=== PATIENT | male | born 1955 | race Caucasian/White ===

== ENCOUNTER 2017-03-04 06:54 | Day surgery (SDC) | payer OTHER ==
[2017-03-04] MEDS ORDERED: ALBU0.63 NEB (07:38)
[2017-03-04] MEDS ORDERED: ACET500C PO (07:38)
[2017-03-04] MEDS ORDERED: METF500T PO (07:45)
[2017-03-04] MEDS ORDERED: GLIP5TAB8 PO (07:45)
[2017-03-04] MEDS ORDERED: LEVO50TA4 PO (07:45)
[2017-03-04] MEDS ORDERED: XARE20TA PO (07:45)
[2017-03-04] MEDS ORDERED: ATOR40TA16 PO (07:45)
[2017-03-04] MEDS ORDERED: HYDR50TA15 PO (07:45)
[2017-03-04] MEDS ORDERED: CANA300T PO (07:45)
[2017-03-04] MEDS ORDERED: HYDR12.57 PO (07:45)
[2017-03-04] MEDS ORDERED: LUMI0.01 EACH EYE (07:45)
[2017-03-04] MEDS ORDERED: CITA20TA4 PO (07:45)
[2017-03-04] MEDS ORDERED: LISI40TA PO (07:45)
[2017-03-04] MEDS ORDERED: AMLO5TAB2 PO (07:45)
[2017-03-04] MEDS ORDERED: CYCL1TAB29 PO (07:45)
[2017-03-04] MEDS ORDERED: POVIDONE IODINE 5% (ANTISEPSIS KIT) 4 APPLICATIONS EACH NARE SCH (08:00)
[2017-03-04] MEDS ORDERED: ceFAZolin 2 GM PREMIX 50 ML IV SCH (08:00)
[2017-03-04] MEDS ORDERED: VANCOMYCIN 1000 MG/NS 250 ML IV SCH ×2 (08:00)
[2017-03-04] MEDS ORDERED: CHLORHEXIDINE GLUCONATE 2 % 1 PACK (2 CLOTHS) TOPICAL SCH (08:00)
[2017-03-04] MEDS ORDERED: MUPIROCIN 2% OINT 1 APPLIC/GM SYR NASAL SCH (08:00)
[2017-03-04] MEDS ORDERED: MIDAZOLAM HCL 2 MG/2 ML VIAL ONE (08:57)
--- NOTE | 2017-03-04 09:39 | MA ---
cc: JAGDISH JI MD DATE 03/04/[address] Jagdish Ji PROCEDURE PERFORMED 1. 15 minutes moderate IV sedation. 2. Loop recorder insertion. DESCRIPTION OF PROCEDURE The patient was brought to the [facility] in the postabsorptive state after informed consent was obtained. 2 mg Versed and 25 mcg of fentanyl was used for moderate IV sedation. Next, a [employer] LINQ loop recorder was inserted subcutaneously to left chest. The patient tolerated the procedure well without any apparent complications. The serial number was are [id number]. The initial R-wave was 0.44 mV. Tachybrady pause and atrial fibrillation detection was enabled. MD JITENDRA Choudhury/LAURENCE /9:18 AM /9:29 AM
== END 2017-03-04 09:40 | disposition home or self-care (01) ==
LOC: HDIC 06:54 → HDOC 06:54
PROVIDERS: ATTEND Nuclear Medicine Nuclear Cardiology
DX: I48.0 Paroxysmal atrial fibrillation (principal); I34.0 Nonrheumatic mitral (valve) insufficiency; I10 Essential (primary) hypertension; I07.1 Rheumatic tricuspid insufficiency; G47.30 Sleep apnea, unspecified; E11.9 Type 2 diabetes mellitus without complications; J44.9 Chronic obstructive pulmonary disease, unspecified; M54.9 Dorsalgia, unspecified; Z79.01 Long term (current) use of anticoagulants; Z87.891 Personal history of nicotine dependence; E66.01 Morbid (severe) obesity due to excess calories
CPT/HCPCS: 33282; C1764; J0690; J2250; J3010

== ENCOUNTER 2017-11-17 08:07 | Inpatient (IN) | payer OTHER, MEDICARE ==
[2017-11-17] VITALS (16 sets, daily range): BP systolic 78–119; BP diastolic 46–86; PULSE 72–133; RESP 12–23; TEMP 96.5–100; O2SAT 94–99
[~2017-11-17 08:07] MED LIST: ACET500C PO; ALBU0.63 NEB; AMLO5TAB2 PO; ATOR40TA16 PO; CANA300T PO; CITA20TA4 PO; CYCL10TA PO; GLIP5TAB8 PO; HYDR12.57 PO; HYDR50TA15 PO; LEVO50TA4 PO; LISI40TA PO; LUMI0.01 EACH EYE; METF500T PO; XARE20TA PO
[2017-11-17] MEDS ORDERED: METO100T PO (08:59)
[2017-11-17] MEDS ORDERED: HYDR-3799 PO (08:59)
[2017-11-17] MEDS ORDERED: CART120C PO (08:59)
[2017-11-17] MEDS ORDERED: SODIUM CHLORIDE 0.9% FLUSH 10 ML FLUSH IVF PRN (09:30)
[2017-11-17] MEDS ORDERED: ONDANSETRON HCL 4 MG/2 ML VIAL IVP ONE (09:30)
[2017-11-17] MEDS ORDERED: SODIUM CHLOR 0.9% 1000 ML INJ 1,000 ML IV ONE ×2 (09:30→10:45)
[2017-11-17] MEDS ORDERED: PANTOPRAZOLE SODIUM 40 MG VIAL IVP ONE (09:30)
--- NOTE | 2017-11-17 09:36 | PD ---
HPI Chief Complaint: GI Complaint Time Seen by Provider: 09:16 Travel History International Travel<30 days: No Contact w/Intl Traveler<30days: No Traveled to known affect area: No History of Present Illness HPI This patient complains of feeling dizzy and lightheaded. He feels like he is given a pass out when he stands up. His heart is beating rapidly. He is also complaining of black stool for 3 days. He has history of upper GI bleed. He has no alcohol abuse. He does takes Xarelto for A. fib. He has a loop recorder implanted. He is not having any chest pain or fever. No abdominal pain. Has not had syncope. Symptoms are severe. No alleviating factors. Symptoms exacerbated by blood thinner use and underlying A. fib. PFSH Past Medical History Atrial Fibrillation: Yes Anxiety: Yes Depression: Yes Cardiovascular Problems: Yes High Cholesterol: Yes Diabetes: Yes Patient Takes Glucophage: Yes Diminished Hearing: No Gastrointestinal Disorders: Yes GERD: Yes Hypertension: Yes Medical other: Yes Musculoskeletal: Yes Psychiatric: Yes Respiratory: Yes (sleep apnea) Tetanus Vaccination: > 5 Years Influenza Vaccination: Yes Past Surgical History Abdominal Surgery: Yes (hernia repair) Eye Surgery: Yes (glaucoma) Social History Alcohol Use: No Tobacco Use: No (quit 25 years ago) Substance Use: No Allergies-Medications (Allergen,Severity, Reaction): Coded Allergies: aspirin (Verified Adverse Reaction, Severe, STOMACH BLEED, 11/17/17) Reported Meds & Prescriptions Reported Meds & Active Scripts Active Reported Metoprolol Tartrate 100 Mg Tab 100 Mg PO DAILY Cartia Xt (Diltiazem ER 24 HR) 120 Mg Caper 240 Mg PO DAILY Hydralazine HCl 25 Mg Tablet 50 Mg PO TID Xarelto (Rivaroxaban) 20 Mg Tab 20 Mg PO DAILY Metformin (Metformin HCl) 500 Mg Tab 500 Mg PO BIDPC With meals Lumigan Opth Drops (Bimatoprost) 0.01% Soln 1 Drop EACH EYE HS Lisinopril 40 Mg Tab 40 Mg PO DAILY Levothyroxine (Levothyroxine Sodium) 50 Mcg Tab 50 Mcg PO DAILY Invokana (Canagliflozin) 300 Mg Tab 300 Mg PO DAILY Take before 1st meal of day. Hydrochlorothiazide 12.5 Mg Cap 12.5 Mg PO DAILY Glipizide 5 Mg Tab 5 Mg PO DAILY Take 30 minutes before a meal Citalopram (Citalopram Hydrobromide) 20 Mg Tab 20 Mg PO DAILY Atorvastatin (Atorvastatin Calcium) 40 Mg Tab 40 Mg PO HS Review of Systems General / Constitutional: No: Fever Eyes: No: Visual changes HENT: Positive: Lightheadedness, No: Headaches Cardiovascular: Positive: Palpitations, Irregular Rhythm, Tachycardia, No: Chest Pain or Discomfort Respiratory: No: Shortness of Breath Gastrointestinal: No: Abdominal Pain Genitourinary: No: Dysuria Musculoskeletal: Positive: Weakness, No: Pain Skin: No Rash Neurologic: Positive: Weakness, Dizziness Psychiatric: No: Depression Endocrine: No: Polydipsia Hematologic/Lymphatic: No: Easy Bruising Physical Exam Narrative GENERAL: Well-nourished, well-developed patient with tachycardia and melena and lightheadedness . SKIN: Focused skin assessment reveals no rash and nodules. Skin is Warm and dry. HEAD: Atraumatic. Normocephalic. EYES: Pupils equal and round. No scleral icterus. No injection or drainage. ENT: No nasal bleeding or discharge. Mucous membranes pink and moist. NECK: Trachea midline. No JVD. CARDIOVASCULAR: Very rapid heart rate of 150. No murmur appreciated. Due to the excessive heart rate it's difficult to tell by exam if this is regular or not RESPIRATORY: No accessory muscle use. Clear to auscultation. Breath sounds equal bilaterally. GASTROINTESTINAL: Abdomen soft, non-tender, nondistended. Hepatic and splenic margins not palpable. MUSCULOSKELETAL: No obvious deformities. No clubbing. No cyanosis. No edema. NEUROLOGICAL: Awake and alert. No obvious cranial nerve deficits. Motor grossly within normal limits. Normal speech. PSYCHIATRIC: Appropriate mood and affect; insight and judgment normal. Rectal: Normal tone, no mass. Stool is black Data Data Last Documented VS Vital Signs Date Time Temp Pulse Resp B/P (MAP) Pulse Ox O2 Delivery O2 Flow Rate FiO2 11/17/17 10:36 123 18 93/56 (68) 96 11/17/17 08:36 Room Air 11/17/17 08:10 96.5 Orders Orders Basic Metabolic Panel (Bmp) (11/17/17 09:25) Complete Blood Count With Diff (11/17/17 09:25) Type And Screen (11/17/17 09:25) Ecg Monitoring (11/17/17 09:25) Iv Access Insert/Monitor (11/17/17 09:25) Oximetry (11/17/17 09:25) Ondansetron Inj (Zofran Inj) (11/17/17 09:30) Pantoprazole Inj (Protonix Inj) (11/17/17 09:30) Sodium Chloride 0.9% Flush (Ns Flush) (11/17/17 09:30) Sodium Chlor 0.9% 1000 Ml Inj (Ns 1000 M (11/17/17 09:30) Diltiazem Inj (Cardizem Inj) (11/17/17 09:45) Diltiazem Inj (Cardizem Inj) (11/17/17 10:45) Sodium Chloride 0.9% Flush (Ns Flush) (11/17/17 10:45) Sodium Chlor 0.9% 1000 Ml Inj (Ns 1000 M (11/17/17 10:45) Calcium Gluconate Inj (Calcium Gluconate (11/17/17 10:45) Insulin Human Regular Inj (Novolin R Inj (11/17/17 10:45) Dextrose 50% In Irena (Vial) Inj (D50w (Vi (11/17/17 10:45) Sodium Bicarbonate 8.4% Inj (Sodium Bica (11/17/17 10:45) Sodium Polysty Sulfate Liq (Kayexalate L (11/17/17 10:45) Admit Order (Ed Use Only) (11/17/17 10:40) Labs Laboratory Tests Test 11/17/17 09:30 White Blood Count 13.5 TH/MM3 Red Blood Count 3.93 MIL/MM3 Hemoglobin 11.3 GM/DL Hematocrit 33.8 % Mean Corpuscular Volume 85.9 FL Mean Corpuscular Hemoglobin 28.7 PG Mean Corpuscular Hemoglobin Concent 33.4 % Red Cell Distribution Width 14.6 % Platelet Count 241 TH/MM3 Mean Platelet Volume 9.0 FL Neutrophils (%) (Auto) 84.9 % Lymphocytes (%) (Auto) 8.4 % Monocytes (%) (Auto) 6.2 % Eosinophils (%) (Auto) 0.1 % Basophils (%) (Auto) 0.4 % Neutrophils # (Auto) 11.5 TH/MM3 Lymphocytes # (Auto) 1.1 TH/MM3 Monocytes # (Auto) 0.8 TH/MM3 Eosinophils # (Auto) 0.0 TH/MM3 Basophils # (Auto) 0.1 TH/MM3 CBC Comment DIFF FINAL Differential Comment Blood Urea Nitrogen 63 MG/DL Creatinine 1.65 MG/DL Random Glucose 284 MG/DL Calcium Level 8.9 MG/DL Sodium Level 140 MEQ/L Potassium Level 6.3 MEQ/L Chloride Level 104 MEQ/L Carbon Dioxide Level 25.1 MEQ/L Anion Gap 11 MEQ/L Estimat Glomerular Filtration Rate 42 ML/MIN MDM Medical Decision Making Medical Screen Exam Complete: Yes Emergency Medical Condition: Yes Medical Record Reviewed: Yes Differential Diagnosis GI bleed, symptomatic anemia, hemorrhagic shock, A. fib with RVR Narrative Course I have reviewed the patient's electronic medical record. Reviewed his February 2017 loop recorder implantation note This patient arrives critically ill. He has GI bleed in combination with A. fib with RVR and a heart rate of 150 and taking a nonreversible blood thinner 2 IVs placed I gave him 1 L normal saline IV bolus I gave him 20 mg IV Cardizem He will need close watching for development of hypotension Typing and screening done CBC shows hemoglobin of 11.3 Metabolic profile shows hyperkalemia of 6.3 with azotemia and hyperglycemia LFTs are noted There is some decent response to Cardizem initially but that is were often a heart rate is now up into the 120s Blood pressure dropped to 93 systolic I'm starting Cardizem drip and giving him a second liter of normal saline IV bolus I've ordered a multitude of medications for hyperkalemia including sodium bicarbonate and D50 and insulin and Kayexalate and 1 g IV calcium gluconate 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 This patient will require intensive care support given he is critically ill with GI bleed on anticoagulation with A. fib with RVR now hypotension Critical Care Narrative Aggregate critical care time was 80 minutes. Time to perform other separately billable procedures was not included in the critical care time. My time did not include minutes spent treating any other patients simultaneously or on activities that did not directly contribute to the patient's treatment. The services I provided to this patient were to treat and/or prevent clinically significant deterioration that could result in: Hemorrhagic shock, cardiopulmonary arrest I provided critical care services requiring my management, as noted below: Chart data review, documentation time, medication orders and management, vital sign assessments/reviewing monitor data, ordering and reviewing lab tests, ordering and interpreting/reviewing x-rays and diagnostic studies, care of the patient and discussion of the patient with the admitting physicians. Diagnosis Primary Impression: GI bleed Qualified Codes: K92.2 - Gastrointestinal hemorrhage, unspecified Additional Impressions: Anticoagulated Atrial fibrillation with RVR Acute hyperkalemia Admitting Information Admitting Physician Requests: Admit Jeramie Gillespie MD Nov 17, 2017 09:36
[2017-11-17 09:43] LABS: AUTOMATED NEUTROPHIL # 11.5 TH/MM3 (1.8-7.7); BASOPHIL # 0.1 TH/MM3 (0-0.2); BASOPHIL % 0.4 % (0.0-2.0); EOSINOPHIL % 0.1 % (0.0-4.0); HEMATOCRIT 33.8 % (39.0-51.0); HEMOGLOBIN 11.3 GM/DL (13.0-17.0); LYMPH % 8.4 % (9.0-44.0); LYMPHOCYTE # 1.1 TH/MM3 (1.0-4.8); MEAN CELL VOLUME 85.9 FL (80.0-100.0); MEAN CORPUSCULAR HEMOGLOBIN 28.7 PG (27.0-34.0); MEAN CORPUSCULAR HGB CONC 33.4 % (32.0-36.0); MONO % 6.2 % (0.0-8.0); MONOCYTE # 0.8 TH/MM3 (0-0.9); NEUT % 84.9 % (16.0-70.0); PLATELET COUNT 241 TH/MM3 (150-450); RED BLOOD COUNT 3.93 MIL/MM3 (4.50-5.90); RED CELL DISTRIBUTION WIDTH 14.6 % (11.6-17.2); WHITE BLOOD COUNT 13.5 TH/MM3 (4.0-11.0)
[2017-11-17] MEDS ORDERED: DILTIAZEM HCL 25 MG/5 ML VIAL IV ONE (09:45)
[2017-11-17 10:10] LABS: BICARBONATE 25.1 MEQ/L (21.0-32.0); CALCIUM 8.9 MG/DL (8.5-10.1); CREATININE 1.65 MG/DL (0.60-1.30)
[2017-11-17] MEDS ORDERED: SODIUM CHLORIDE 0.9% FLUSH 10 ML FLUSH IV FLUSH PRN (10:45)
[2017-11-17] MEDS ORDERED: INSULIN HUMAN REGULAR 1,000 UNITS/10 ML VIAL IV PUSH ONE (10:45)
[2017-11-17] MEDS ORDERED: SODIUM BICARBONATE 8.4% SOLN 50 MEQ/50 ML VIAL SLOW IVP ONE (10:45)
[2017-11-17] MEDS ORDERED: DEXTROSE 50% IN WATER 50 ML VIAL(D50) IV PUSH ONE (10:45)
[2017-11-17] MEDS ORDERED: CALCIUM GLUCONATE 10% 1 GM/10 ML VIAL SLOW IVP ONE (10:45)
[2017-11-17] MEDS ORDERED: SODIUM POLYSTYRENE SULFONATE SUSP 15 GM/60 ML CUP PO ONE (10:45)
[2017-11-17] MEDS ORDERED: ACETAMINOPHEN 325 MG TAB PO PRN (11:00)
[2017-11-17] MEDS ORDERED: MISCELLANEOUS NURSING INFORMATION XX SCH (11:00)
[2017-11-17] MEDS ORDERED: CHLORHEXIDINE GLUCONATE 2 % 1 PACK (2 CLOTHS) TOP PRN (11:00)
[2017-11-17] MEDS ORDERED: GLUCAGON 1 MG/ML VIAL OTHER PRN (11:15)
[2017-11-17] MEDS ORDERED: DEXTROSE 50% IN WATER 50 ML VIAL(D50) IV PUSH PRN (11:15)
[2017-11-17] MEDS ORDERED: PANTOPRAZOLE SODIUM 40 MG VIAL IV PUSH ONE (11:15)
[2017-11-17] MEDS: INSULIN ASPART SUPPLEMENTAL SCALE SQ SCH ×3 (11:15→23:15)
--- NOTE | 2017-11-17 12:10 | HHI.HP ---
HPI Service Critical Care Medicine Primary Care Physician Unknown Admission Diagnosis gi bleed,anticoagulated,afib with rvr Diagnosis: (1) Hypovolemic shock Diagnosis: Principal (2) GI bleed Diagnosis: Principal (3) Coagulopathy Diagnosis: Principal (4) Acute hyperkalemia Diagnosis: Principal (5) Atrial fibrillation with RVR Diagnosis: Secondary Chief Complaint: Weakness. Travel History International Travel<30 Days: No Contact w/Intl Traveler <30 Da: No Traveled to Known Affected Are: No History of Present Illness 61 y/o man arrives to ED in hypovolemic shock and probable actively bleeding UGI ulcer/gastritis. Care is complicated by permanent atrial fibrillation and Xarelto use. Presently hyperkalemic and RVR, on cardizem gtt. Past history of gastric bleed. Past Family Social History Allergies: Coded Allergies: aspirin (Verified Adverse Reaction, Severe, STOMACH BLEED, 11/17/17) Past Medical History Past Medical History Atrial Fibrillation: Yes Anxiety: Yes Depression: Yes Cardiovascular Problems: Yes High Cholesterol: Yes Diabetes: Yes Patient Takes Glucophage: Yes Diminished Hearing: No Gastrointestinal Disorders: Yes GERD: Yes Hypertension: Yes Medical other: Yes Musculoskeletal: Yes Psychiatric: Yes Respiratory: Yes (sleep apnea) Tetanus Vaccination: > 5 Years Influenza Vaccination: Yes Past Surgical History Abdominal Surgery: Yes (hernia repair) Eye Surgery: Yes (glaucoma) Social History Alcohol Use: No Tobacco Use: No (quit 25 years ago) Substance Use: No Allergies-Medications Allergies-Medications (Allergen,Severity, Reaction): Coded Allergies: aspirin (Verified Adverse Reaction, Severe, STOMACH BLEED, 11/17/17) Reported Meds & Prescriptions Reported Meds & Active Scripts Active Reported Metoprolol Tartrate 100 Mg Tab 100 Mg PO DAILY Cartia Xt (Diltiazem ER 24 HR) 120 Mg Caper 240 Mg PO DAILY Hydralazine HCl 25 Mg Tablet 50 Mg PO TID Xarelto (Rivaroxaban) 20 Mg Tab 20 Mg PO DAILY Metformin (Metformin HCl) 500 Mg Tab 500 Mg PO BIDPC With meals Lumigan Opth Drops (Bimatoprost) 0.01% Soln 1 Drop EACH EYE HS Lisinopril 40 Mg Tab 40 Mg PO DAILY Levothyroxine (Levothyroxine Sodium) 50 Mcg Tab 50 Mcg PO DAILY Invokana (Canagliflozin) 300 Mg Tab 300 Mg PO DAILY Take before 1st meal of day. Hydrochlorothiazide 12.5 Mg Cap 12.5 Mg PO DAILY Glipizide 5 Mg Tab 5 Mg PO DAILY Take 30 minutes before a meal Citalopram (Citalopram Hydrobromide) 20 Mg Tab 20 Mg PO DAILY Atorvastatin (Atorvastatin Calcium) 40 Mg Tab 40 Mg PO HS Physical Exam Vital Signs Vital Signs Date Time Temp Pulse Resp B/P (MAP) Pulse Ox O2 Delivery O2 Flow Rate FiO2 11/17/17 11:30 133 20 100/55 (70) 96 11/17/17 10:36 123 18 93/56 (68) 96 11/17/17 09:49 72 20 118/68 (85) 98 11/17/17 08:38 16 11/17/17 08:36 123 20 115/86 (96) 98 Room Air 11/17/17 08:10 96.5 106 18 99 Laboratory Laboratory Tests Test 11/17/17 09:30 White Blood Count 13.5 Red Blood Count 3.93 Hemoglobin 11.3 Hematocrit 33.8 Mean Corpuscular Volume 85.9 Mean Corpuscular Hemoglobin 28.7 Mean Corpuscular Hemoglobin Concent 33.4 Red Cell Distribution Width 14.6 Platelet Count 241 Mean Platelet Volume 9.0 Neutrophils (%) (Auto) 84.9 Lymphocytes (%) (Auto) 8.4 Monocytes (%) (Auto) 6.2 Eosinophils (%) (Auto) 0.1 Basophils (%) (Auto) 0.4 Neutrophils # (Auto) 11.5 Lymphocytes # (Auto) 1.1 Monocytes # (Auto) 0.8 Eosinophils # (Auto) 0.0 Basophils # (Auto) 0.1 CBC Comment DIFF FINAL Differential Comment Blood Urea Nitrogen 63 Creatinine 1.65 Random Glucose 284 Calcium Level 8.9 Sodium Level 140 Potassium Level 6.3 Chloride Level 104 Carbon Dioxide Level 25.1 Anion Gap 11 Estimat Glomerular Filtration Rate 42 Result Diagram: 11/17/1792911/17/17929 Caprini VTE Risk Assessment Caprini VTE Risk Assessment: Mod/High Risk (score >= 2) Caprini Risk Assessment Model Point Value = 1 Point Value = 2 Point Value = 3 Point Value = 5 Age 41-60 Minor surgery BMI > 25 kg/m2 Swollen legs Varicose veins or History of unexplained or recurrent spontaneous Oral contraceptives or hormone replacement Sepsis (< 1 month) Serious lung disease, including pneumonia (< 1 month) Abnormal pulmonary function Acute myocardial infarction Congestive heart failure (< 1 month) History of inflammatory bowel disease Medical patient at bed rest Age 61-74 Arthroscopic surgery Major open surgery (> 45 min) Laparoscopic surgery (> 45 min) Malignancy Confined to bed (> 72 hours) Immobilizing plaster cast Central venous access Age >= 75 History of VTE Family history of VTE Factor V Leiden Prothrombin [id number] Lupus anticoagulant Anticardiolipin antibodies Elevated serum homocysteine Heparin-induced thrombocytopenia Other congenital or acquired thrombophilia Stroke (< 1 month) Elective arthroplasty Hip, pelvis, or leg fracture Acute spinal cord injury (< 1 month) Prophylaxis Regimen Total Risk Factor Score Risk Level Prophylaxis Regimen 0-1 Low Early ambulation 2 Moderate Order ONE of the following: *Sequential Compression Device (SCD) *Heparin 5000 units SQ BID 3-4 Higher Order ONE of the following medications: *Heparin 5000 units SQ TID *Enoxaparin/Lovenox 40 mg SQ daily (WT < 150 kg, CrCl > 30 mL/min) *Enoxaparin/Lovenox 30 mg SQ daily (WT < 150 kg, CrCl > 10-29 mL/min) *Enoxaparin/Lovenox 30 mg SQ BID (WT < 150 kg, CrCl > 30 mL/min) AND/OR *Sequential Compression Device (SCD) 5 or more Highest Order ONE of the following medications: *Heparin 5000 units SQ TID (Preferred with Epidurals) *Enoxaparin/Lovenox 40 mg SQ daily (WT < 150 kg, CrCl > 30 mL/min) *Enoxaparin/Lovenox 30 mg SQ daily (WT < 150 kg, CrCl > 10-29 mL/min) *Enoxaparin/Lovenox 30 mg SQ BID (WT < 150 kg, CrCl > 30 mL/min) AND *Sequential Compression Device (SCD) Assessment and Plan Assessment and Plan Assessment: 1. Hypovolemic shock. 2. UGI bleed. 3. Coagulopathy - Xarelto. 4. Permanent atrial fibrillation. 5. Hyperkalemia. 6. DN, Type 2, poorly controlled. Plan: GI Bleed - Kcentra - Endoscopy after reversal. Hyperkalemia - Reversal meds given in ED. - Follow K. Coagulaopthy - Hold xarelto A-fib - Cardizem gtt. Overall impression: Critically ill with shock from blood loss and coagulopathy. Unstable. Critical Care 45 mins aside from procedures Problem Qualifiers (1) GI bleed: Qualified Codes: K92.2 - Gastrointestinal hemorrhage, unspecified Tacho Manley MD Nov 17, 2017 12:10
[2017-11-17] MEDS ORDERED: PROTHROMBIN COMPLEX CONC INJ 5,000 UNITS in SYRINGE/BAG 1 EA IV ONE (13:00)
[2017-11-17 13:16] LABS: HEMATOCRIT 27.2 % (39.0-51.0); HEMOGLOBIN 9.2 GM/DL (13.0-17.0)
[2017-11-17] MEDS: SODIUM CHLOR 0.9% 1000 ML INJ 1,000 ML IV SCH ×2 (14:00→22:47)
[2017-11-17] MEDS: PANTOPRAZOLE INJ 80 MG in SODIUM CHLORIDE 0.9% INJ 100 ML IV SCH (14:00)
[2017-11-17 15:01] LABS: BICARBONATE 25.7 MEQ/L (21.0-32.0); CALCIUM 8.4 MG/DL (8.5-10.1); CREATININE 1.46 MG/DL (0.60-1.30)
--- NOTE | 2017-11-17 15:52 | PD.CONS ---
HPI History of Present Illness This is a 61 year old male with prior hx GIB, AF on xarelto who presented with dizziness, black loose stool, n/v with dark emesis. Yesterday he was feeling very dizzy and began having diarrhea that was black. He had an episode of nausea and emesis his thought looked very dark brown. Admits lower abd cramping with the diarrhea. Denies areli blood in emesis or stool. Says he has had bleeding in his stomach before after being on aspirin diagnosed via occult blood in stool and EGD. Had EGD 4 years ago in [place] and was told there was bleeding and that he shouldn not have aspirin. Last colonoscopy 4 years ago as well and he recalls no abnormal findings. Takes xarelto, last had in the evening. PFSH Past Medical History AF DMII loop recorder sleep apnea Past Surgical History placement loop recorder umbilical hernia repair eye surgery back surgeries x 3 Coded Allergies: aspirin (Verified Adverse Reaction, Severe, STOMACH BLEED, 11/17/17) Family History denies Social History denies toxic habits Review of Systems Constitutional: COMPLAINS OF: Dizziness, DENIES: Fever Endocrine: DENIES: Polydipsia Eyes: DENIES: Blurred vision Ears, nose, mouth, throat: DENIES: Hearing loss Respiratory: DENIES: Wheezing Cardiovascular: DENIES: Chest pain Gastrointestinal: COMPLAINS OF: Abdominal pain, Black stools, Diarrhea, Nausea , Vomiting, Hematemesis, DENIES: Bloody stools, Constipation Genitourinary: DENIES: Hematuria Musculoskeletal: DENIES: Joint Swelling Integumentary: DENIES: Abnormal pigmentation Hematologic/lymphatic: DENIES: Bruising Neurologic: DENIES: Abnormal gait Psychiatric: DENIES: Confusion GI Exam Vitals I&O Vital Signs Date Time Temp Pulse Resp B/P (MAP) Pulse Ox O2 Delivery O2 Flow Rate FiO2 11/17/17 12:30 128 11/17/17 12:12 120 20 94/59 (71) 97 Room Air 11/17/17 12:00 98.2 128 20 119/66 (83) 97 11/17/17 12:00 117 20 83/52 (62) 95 Room Air 11/17/17 11:30 133 20 100/55 (70) 96 11/17/17 10:36 123 18 93/56 (68) 96 11/17/17 09:49 72 20 118/68 (85) 98 11/17/17 08:38 16 11/17/17 08:36 123 20 115/86 (96) 98 Room Air 11/17/17 08:10 96.5 106 18 99 I/O 11/16/17 11/16/17 11/16/17 11/17/17 11/17/17 11/17/17 07:00 15:00 23:00 07:00 15:00 23:00 Intake Total 3000 ml Output Total 500 ml Balance 2500 ml Intake IV Total 3000 ml Output Urine Total 500 ml # Voids 1 Laboratory Test 11/17/17 09:30 11/17/17 12:55 11/17/17 14:25 White Blood Count 13.5 TH/MM3 Red Blood Count 3.93 MIL/MM3 Hemoglobin 11.3 GM/DL 9.2 GM/DL Hematocrit 33.8 % 27.2 % Mean Corpuscular Volume 85.9 FL Mean Corpuscular Hemoglobin 28.7 PG Mean Corpuscular Hemoglobin Concent 33.4 % Red Cell Distribution Width 14.6 % Platelet Count 241 TH/MM3 Mean Platelet Volume 9.0 FL Neutrophils (%) (Auto) 84.9 % Lymphocytes (%) (Auto) 8.4 % Monocytes (%) (Auto) 6.2 % Eosinophils (%) (Auto) 0.1 % Basophils (%) (Auto) 0.4 % Neutrophils # (Auto) 11.5 TH/MM3 Lymphocytes # (Auto) 1.1 TH/MM3 Monocytes # (Auto) 0.8 TH/MM3 Eosinophils # (Auto) 0.0 TH/MM3 Basophils # (Auto) 0.1 TH/MM3 CBC Comment DIFF FINAL Differential Comment Blood Urea Nitrogen 63 MG/DL 71 MG/DL Creatinine 1.65 MG/DL 1.46 MG/DL Random Glucose 284 MG/DL 153 MG/DL Calcium Level 8.9 MG/DL 8.4 MG/DL Sodium Level 140 MEQ/L 147 MEQ/L Potassium Level 6.3 MEQ/L 4.6 MEQ/L Chloride Level 104 MEQ/L 113 MEQ/L Carbon Dioxide Level 25.1 MEQ/L 25.7 MEQ/L Anion Gap 11 MEQ/L 8 MEQ/L Estimat Glomerular Filtration Rate 42 ML/MIN 49 ML/MIN Physical Examination HEENT: PERRL; normocephalic; atraumatic; no jaundice. CHEST: CTA CARDIAC: tachycardic, irregular rate ABDOMEN: Soft,obese, mild lower abd TTP; no hepatosplenomegaly; bowel sounds are present in all four quadrants. EXTREMITIES: No clubbing, cyanosis, or edema. SKIN: Normal; no rash; no jaundice. 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 Assessment and Plan Plan ASSESSMENT - black loose stool, dark emesis - prob UGIB. on xarelto, last had last night. hx UGIB. - anemia with drop in hgb - 2/2 above. pending blood transfusion s/p kcentra , hypotensive - hyperkalemia, AF on cardizem gtt - per [facility] PLAN - EGD today - obtain consent - keep NPO - continue protonix gtt - monitor labs - transfuse as needed - further recs to follow pt seen by myself and Dr Perez and this note is written on his behalf Kimber Gao Nov 17, 2017 15:52
[2017-11-17 16:42] LABS: INTERNATIONAL NORMALIZED RATIO 1.3 RATIO; PROTHROMBIN TIME - PATIENT 12.7 SEC (9.8-11.6)
[2017-11-17 20:27] LABS: HEMATOCRIT 24.6 % (39.0-51.0); HEMOGLOBIN 8.3 GM/DL (13.0-17.0)
--- NOTE | 2017-11-17 22:52 | EKG ---
Date Performed: 11/17/2017 Time Performed: 09:29:36 PTAGE: 61 years EKG: ATRIAL FIBRILLATION WITH RAPID VENTRICULAR RESPONSE NONSPECIFIC T-WAVE ABNORMALITY ABNORMAL RHYTHM ECG NO PREVIOUS TRACING DOCTOR: Armando Boswell Interpretating Date/Time 11/17/2017 22:51:36
[2017-11-17 23:14] LABS: HEMATOCRIT 23.5 % (39.0-51.0); HEMOGLOBIN 7.9 GM/DL (13.0-17.0)
[2017-11-17 23:54] LABS: BICARBONATE 27.2 MEQ/L (21.0-32.0); CALCIUM 7.4 MG/DL (8.5-10.1); CREATININE 1.38 MG/DL (0.60-1.30)
[2017-11-17 23:54] LABS: INTERNATIONAL NORMALIZED RATIO 1.2 RATIO; PROTHROMBIN TIME - PATIENT 12.5 SEC (9.8-11.6)
[2017-11-18] VITALS (14 sets, daily range): BP systolic 96–128; BP diastolic 55–79; PULSE 83–118; RESP 17–24; TEMP 97.9–98.7; O2SAT 93–98
[2017-11-18 00:08] LABS: CALCIUM-PROTEIN CORRECTED 8.8 MG/DL (8.5-10.1); TOTAL PROTEIN 4.7 GM/DL (6.4-8.2)
[2017-11-18] MEDS: LACTATED RINGER'S 1000 ML INJ 1,000 ML IV SCH ×3 (01:03→14:00)
[2017-11-18] MEDS: LATANOPROST 0.005% OPHT SOLN 2.5 ML BTL EACH EYE SCH ×2 (01:04→20:18)
[2017-11-18] MEDS: CHLORHEXIDINE GLUCONATE 2 % 1 PACK (2 CLOTHS) TOP SCH (04:00)
[2017-11-18] MEDS: INSULIN ASPART SUPPLEMENTAL SCALE SQ SCH ×4 (05:15→23:15)
[2017-11-18] MEDS: DILTIAZEM INJ 125 MG in SODIUM CHLORIDE 0.9% INJ 100 ML IV PRN ×2 (05:45→12:00)
[2017-11-18 06:05] LABS: INTERNATIONAL NORMALIZED RATIO 1.2 RATIO
[2017-11-18 06:14] LABS: HEMATOCRIT 26.6 % (39.0-51.0)
[2017-11-18] MEDS: PANTOPRAZOLE INJ 80 MG in SODIUM CHLORIDE 0.9% INJ 100 ML IV SCH ×4 (07:51→18:21)
--- NOTE | 2017-11-18 09:50 | PD.PROCEDR ---
GI Procedure PROCEDURE PERFORMED Upper endoscopy with biopsy INDICATION FOR PROCEDURE Upper GI bleed, black stool PROCEDURE: The procedure, risks and benefits were discussed with Mr. Lee and informed consent was obtained. Anesthesia sedated him with Diprivan. He was placed in the left lateral decubitus position. EGD: The Pentax videoscope was introduced through the oropharynx and advanced to the second portion of the duodenum under direct visualization. Retroflexion was performed in the stomach. Biopsy was obtained from the EG junction, and from antral ulcer ESTIMATED BLOOD LOSS: None SPECIMENS REMOVED: EG junction, antrum from an ulcer COMPLICATIONS: None IMPRESSION: Irregular Z line and questionable short Scott biopsy was done from the EG junction Ulcer in the antrum no active bleeding biopsy was done Significant gastritis PLAN: No NSAIDs Protonix 40 mg daily Follow-up biopsy Return to clinic in 2-3 weeks upper endoscopy in two-month Mayra Perez MD Nov 18, 2017 09:50
--- NOTE | 2017-11-18 09:52 | HHI.GIFU ---
Subjective Remarks Patient laying in bed comfortably, deny any GI bleed, deny black stool in the bowel movement, hemoglobin stable Objective Vitals I&O Vital Signs Date Time Temp Pulse Resp B/P (MAP) Pulse Ox O2 Delivery O2 Flow Rate FiO2 11/18/17 08:00 97.9 98 17 114/67 (83) 95 11/18/17 08:00 Room Air 11/18/17 08:00 97 11/18/17 06:30 112 135/79 11/18/17 06:00 118 11/18/17 05:45 116 129/71 11/18/17 04:00 107 11/18/17 04:00 98.2 108 23 108/66 (80) 94 11/18/17 02:00 114 11/18/17 01:30 98.2 105 20 106/79 94 11/18/17 01:15 98.0 112 20 109/55 96 11/18/17 00:00 100 11/18/17 00:00 98.0 108 20 109/55 (73) 93 11/17/17 22:00 115 11/17/17 20:00 116 11/17/17 20:00 100.0 116 20 95/54 (68) 99 11/17/17 19:00 Room Air 96 11/17/17 18:30 98.0 120 15 109/53 97 11/17/17 18:00 120 11/17/17 17:45 98.0 111 20 95/54 98 11/17/17 17:30 97.9 130 12 78/46 98 11/17/17 16:00 97.9 127 23 101/50 (67) 94 11/17/17 16:00 127 11/17/17 14:00 130 11/17/17 12:30 128 11/17/17 12:12 120 20 94/59 (71) 97 Room Air 11/17/17 12:00 98.2 128 20 119/66 (83) 97 11/17/17 12:00 117 20 83/52 (62) 95 Room Air 11/17/17 11:30 133 20 100/55 (70) 96 11/17/17 10:36 123 18 93/56 (68) 96 I/O 11/17/17 11/17/17 11/17/17 11/18/17 11/18/17 11/18/17 07:00 15:00 23:00 07:00 15:00 23:00 Intake Total 4000 ml 4740 ml 1570 ml 100 ml Output Total 500 ml 700 ml 2380 ml Balance 3500 ml 4040 ml -810 ml 100 ml Intake Oral 240 ml 480 ml IV Total 4000 ml 3100 ml 290 ml 100 ml Packed Cells 400 ml 400 ml Blood Product IV Normal Saline Flush 1000 ml 400 ml Output Urine Total 500 ml 700 ml 2380 ml # Voids 1 # Bowel Movements 0 0 Laboratory Laboratory Tests Test 11/17/17 12:55 11/17/17 14:25 11/17/17 16:02 11/17/17 19:10 Hemoglobin 9.2 8.3 Hematocrit 27.2 24.6 Blood Urea Nitrogen 71 Creatinine 1.46 Random Glucose 153 Calcium Level 8.4 Sodium Level 147 Potassium Level 4.6 Chloride Level 113 Carbon Dioxide Level 25.7 Anion Gap 8 Estimat Glomerular Filtration Rate 49 Prothrombin Time 12.7 Prothromb Time International Ratio 1.3 Activated Partial Thromboplast Time 24.7 Test 11/17/17 22:50 11/17/17 23:00 11/18/17 05:30 Hemoglobin 7.9 9.0 Hematocrit 23.5 26.6 Blood Urea Nitrogen 67 Creatinine 1.38 Random Glucose 123 Total Protein 4.7 Calcium Level 7.4 Sodium Level 150 Potassium Level 4.0 Chloride Level 119 Carbon Dioxide Level 27.2 Anion Gap 4 Estimat Glomerular Filtration Rate 52 Protein Corrected Calcium 8.8 Prothrombin Time 12.5 12.0 Prothromb Time International Ratio 1.2 1.2 Physical Exam HEENT: Pupils round and reactive to light; normocephalic; atraumatic; no jaundice. Throat is clear. Morbidly obese NECK: Neck is supple, no JVD, no lymphadenopathy. CHEST: Chest is clear to auscultation and percussion. CARDIAC: Regular rate and rhythm with no murmur gallop or rubs. ABDOMEN: Soft, nondistended, nontender; no hepatosplenomegaly; bowel sounds are present in all four quadrants. EXTREMITIES: No clubbing, cyanosis, or edema. SKIN: Normal; no rash; no jaundice. 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 Assessment and Plan Plan ASSESSMENT - black loose stool, dark emesis - prob UGIB. on xarelto, last had last night. hx UGIB. - anemia with drop in hgb - 2/2 above. pending blood transfusion s/p kcentra , hypotensive - hyperkalemia, AF on cardizem gtt - per [facility] 11/18/2017 patient came with GI bleed, no active bleeding, upper endoscopy was done IMPRESSION: Irregular Z line and questionable short Scott biopsy was done from the EG junction Ulcer in the antrum no active bleeding biopsy was done Significant gastritis PLAN: No NSAIDs Protonix 40 mg daily Follow-up biopsy Return to clinic in 2-3 weeks upper endoscopy in two-month - monitor labs - transfuse as needed - further recs to follow Eighth anticoagulation is necessary H and may be started tomorrow on the lowest possible therapeutic dose with close monitoring Mayra Perez MD Nov 18, 2017 09:52
[2017-11-18] MEDS ORDERED: LIDOCAINE HCL 1% PF 5 ML SYRINGE OTHER ONE (12:00)
[2017-11-18] MEDS ORDERED: PROPOFOL 200 MG/20 ML AMP IV ONE (12:00)
[2017-11-18 13:40] LABS: HEMATOCRIT 27.9 % (39.0-51.0); HEMOGLOBIN 9.7 GM/DL (13.0-17.0)
[2017-11-18 13:42] LABS: INTERNATIONAL NORMALIZED RATIO 1.1 RATIO; PROTHROMBIN TIME - PATIENT 11.4 SEC (9.8-11.6)
--- NOTE | 2017-11-18 13:51 | HHI.CCPN ---
Subjective Remarks/Hospital Course 11/17: 61 y/o man arrives to ED in hypovolemic shock and probable actively bleeding UGI ulcer/gastritis. Care is complicated by permanent atrial fibrillation and Xarelto use. Presently hyperkalemic and RVR, on cardizem gtt. Past history of gastric bleed. 11/18: Patient doing better. Normotensive, still requiring cardizem at 10 but rate better controlled. On PPI drip. Had upper endoscopy, result reviewed. No melena, no hematemesis, no hematochezia. Denies CP. Objective Vital Signs Date Time Temp Pulse Resp B/P (MAP) Pulse Ox O2 Delivery O2 Flow Rate FiO2 11/18/17 12:00 94 11/18/17 12:00 98.3 24 96/55 (69) 98 11/18/17 08:00 Room Air 11/17/17 19:00 96 Intake and Output 11/18/17 11/18/17 11/19/17 08:00 16:00 00:00 Intake Total 1570 ml Output Total 2380 ml Balance -810 ml Result Diagram: 11/18/17 1319 11/17/17 2250 Objective Remarks General - middle age gentleman, obese, ill appearing HEENT - pupils equal, reactive, sclerae anicteric, neck supple, no nuchal rigidity, neck veins not distended, no carotid bruit CV - regular S1, S2, no murmurs Chest - clear b/l, decreased air entry at bases, no wheezes Abdomen - soft, non-tender, obese, BS present, no hepatomegaly, no splenomegaly Skin - no rashes, no cyanosis Extremities - warm and well perfused, no edema, + peripheral pulses, no clubbing Neuro - awake, alert and oriented, moves all extremities A/P Assessment and Plan Assessment: 1. Hypovolemic shock - resolved 2. UGI bleed s/p EGD. Found to have ulcer in the antrum with no active bleeding. Also significant gastritis and ? Jake 3. Coagulopathy - improved 4. Permanent atrial fibrillation - rate better controlled 5. Hyperkalemia - resolved 6. DM, Type 2, poorly controlled Plan: 1. Repeat labs are pending 2. PPI drip. Switch to daily in AM 3. Advance diet if ok with GI 4. Diltiazem for rate control 5. Serial H/H 6. DVT prophylaxis with SCD's 7. Glycemic control Raul Melendez MD Nov 18, 2017 13:51
[2017-11-18 14:08] LABS: BICARBONATE 27.2 MEQ/L (21.0-32.0); CREATININE 1.18 MG/DL (0.60-1.30)
[2017-11-18 17:24] LABS: INTERNATIONAL NORMALIZED RATIO 1.1 RATIO; PROTHROMBIN TIME - PATIENT 11.2 SEC (9.8-11.6)
[2017-11-18 19:31] LABS: HEMATOCRIT 26.3 % (39.0-51.0); HEMOGLOBIN 9.1 GM/DL (13.0-17.0)
[2017-11-18] MEDS: METOPROLOL TARTRATE 25 MG TAB PO SCH (20:17)
[2017-11-18] MEDS: CITALOPRAM HYDROBROMIDE 20 MG TAB PO SCH (20:17)
[2017-11-18] MEDS: ATORVASTATIN 40 MG TAB PO SCH (20:18)
[2017-11-18] MEDS: LISINOPRIL 10 MG TAB PO SCH (20:23)
[2017-11-18] MEDS: hydrALAZINE HCL 25 MG TAB PO SCH (21:00)
[2017-11-19] VITALS (9 sets, daily range): BP systolic 109–121; BP diastolic 55–82; PULSE 73–114; RESP 18–22; TEMP 97.9–98.2; O2SAT 95–96
[2017-11-19 00:47] LABS: HEMATOCRIT 24.6 % (39.0-51.0); HEMOGLOBIN 8.5 GM/DL (13.0-17.0)
[2017-11-19 01:12] LABS: BICARBONATE 29.3 MEQ/L (21.0-32.0); CALCIUM 8.1 MG/DL (8.5-10.1); CREATININE 1.24 MG/DL (0.60-1.30)
[2017-11-19] MEDS: LACTATED RINGER'S 1000 ML INJ 1,000 ML IV SCH (02:51)
[2017-11-19] MEDS: PANTOPRAZOLE INJ 80 MG in SODIUM CHLORIDE 0.9% INJ 100 ML IV SCH (03:42)
[2017-11-19] MEDS: CHLORHEXIDINE GLUCONATE 2 % 1 PACK (2 CLOTHS) TOP SCH (04:00)
[2017-11-19] MEDS: INSULIN ASPART SUPPLEMENTAL SCALE SQ SCH ×4 (05:15→23:17)
[2017-11-19 06:26] LABS: HEMATOCRIT 22.9 % (39.0-51.0); HEMOGLOBIN 7.8 GM/DL (13.0-17.0)
[2017-11-19] MEDS: HYDROCHLOROTHIAZIDE 12.5 MG CAP PO SCH (08:40)
[2017-11-19] MEDS: CITALOPRAM HYDROBROMIDE 20 MG TAB PO SCH (08:40)
[2017-11-19] MEDS: LEVOTHYROXINE SODIUM 50 MCG TAB PO SCH (08:40)
[2017-11-19] MEDS: DILTIAZEM-CD 120 MG CAP ER PO SCH (08:40)
[2017-11-19] MEDS: METOPROLOL TARTRATE 25 MG TAB PO SCH ×2 (08:40→20:57)
[2017-11-19] MEDS: LISINOPRIL 10 MG TAB PO SCH (08:40)
[2017-11-19] MEDS: hydrALAZINE HCL 25 MG TAB PO SCH ×2 (08:40→20:58)
[2017-11-19] MEDS: PANTOPRAZOLE SOD 40 MG DELAYED RELEASE TAB PO SCH (10:53)
--- NOTE | 2017-11-19 13:08 | HHI.GIFU ---
Subjective Remarks Patient's resting in the bed Abdominal bloating with active bowel sounds, she states he feels gaseous in room Encouraged increased turning and activity Afebrile Denies any acute weakness Objective Vitals I&O Vital Signs Date Time Temp Pulse Resp B/P (MAP) Pulse Ox O2 Delivery O2 Flow Rate FiO2 11/19/17 08:00 98.2 114 22 121/80 (94) 96 11/19/17 08:00 114 11/19/17 07:00 Room Air 100 11/19/17 06:00 100 11/19/17 04:00 90 11/19/17 04:00 98.0 104 20 116/74 (88) 95 11/19/17 02:00 91 11/19/17 00:00 103 11/19/17 00:00 97.9 94 20 109/82 (91) 95 11/18/17 22:00 83 11/18/17 20:00 92 11/18/17 20:00 97.9 92 21 111/64 (80) 97 11/18/17 19:00 Room Air 98 11/18/17 18:00 86 11/18/17 16:00 89 11/18/17 16:00 98.7 96 18 128/57 (80) 98 11/18/17 14:00 92 I/O 11/18/17 11/18/17 11/18/17 11/19/17 11/19/17 11/19/17 07:00 15:00 23:00 07:00 15:00 23:00 Intake Total 1570 ml 1225 ml 580 ml 1340 ml 60 ml Output Total 2380 ml 2600 ml 2000 ml Balance -810 ml 1225 ml -2020 ml -660 ml 60 ml Intake Oral 480 ml 480 ml 240 ml IV Total 290 ml 1225 ml 100 ml 1100 ml 60 ml Packed Cells 400 ml Blood Product IV Normal Saline Flush 400 ml Output Urine Total 2380 ml 2600 ml 2000 ml # Bowel Movements 0 0 Laboratory Laboratory Tests Test 11/18/17 13:19 11/18/17 16:19 11/18/17 19:09 11/19/17 00:33 Hemoglobin 9.7 9.1 8.5 Hematocrit 27.9 26.3 24.6 Prothrombin Time 11.4 11.2 Prothromb Time International Ratio 1.1 1.1 Blood Urea Nitrogen 44 32 Creatinine 1.18 1.24 Random Glucose 119 118 Calcium Level 8.0 8.1 Sodium Level 149 146 Potassium Level 4.0 4.0 Chloride Level 117 113 Carbon Dioxide Level 27.2 29.3 Anion Gap 5 4 Estimat Glomerular Filtration Rate 63 59 Test 11/19/17 04:40 Hemoglobin 7.8 Hematocrit 22.9 Physical Exam HEENT: Pupils round and reactive to light; normocephalic; atraumatic; no jaundice. Oral cavity clean Morbidly obese NECK: Neck is short thick, no JVD, no lymphadenopathy. CHEST: Chest is mild diminished but no rhonchi CARDIAC: Regular rate and rhythm ABDOMEN: Obese , taut , moderate bloating ,nontender; tympanic bowel sounds are present in all four quadrants. EXTREMITIES: No clubbing, cyanosis, or edema. SKIN: Normal; no rash; no jaundice. 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 Assessment and Plan Plan ASSESSMENT - black loose stool, dark emesis - prob UGIB. on xarelto, last had last night. hx UGIB. - anemia, no obvious bleeding. Current hemoglobin 7.8. Will need to follow and recheck in the morning 11/18/2017 patient came with GI bleed, no active bleeding, upper endoscopy was done Irregular Z line and questionable short Scott biopsy was done from the EG junction Ulcer in the antrum no active bleeding biopsy was done Significant gastritis, explained to and patient but may need written information, discussed follow-up in 2 months. PLAN: No NSAIDs Protonix 40 mg daily Follow-up biopsy Return to clinic in 2-3 weeks upper endoscopy in two-month - monitor labs, check CBC in the morning Encouraged activity dangle on side of the bed move around in the bed, patient has some moderate bloating and gas but active bowel sounds Consider KUB of bloating continues - transfuse as needed - further recs to follow Eighth anticoagulation is necessary H and may be started tomorrow on the lowest possible therapeutic dose with close monitoring Patient was seen by myself and Dr. Perez, this note is written on his behalf Zayra Jeffers Nov 19, 2017 13:08
--- NOTE | 2017-11-19 16:59 | PD.TRANSFR ---
Transfer Summary Admission Date Nov 17, 2017 at 10:41 Transfer Date: Nov 19, 2017 Admitting Diagnosis gi bleed,anticoagulated,afib with rvr Diagnoses: (1) Hypovolemic shock Diagnosis: Principal (2) GI bleed Diagnosis: Principal (3) Coagulopathy Diagnosis: Principal (4) Acute hyperkalemia Diagnosis: Principal (5) Atrial fibrillation with RVR Diagnosis: Secondary Transfer Summary/Subjective 11/17: 61 y/o man arrives to ED in hypovolemic shock and probable actively bleeding UGI ulcer/gastritis. Care is complicated by permanent atrial fibrillation and Xarelto use. Presently hyperkalemic and RVR, on cardizem gtt. Past history of gastric bleed. 11/18: Patient doing better. Normotensive, still requiring cardizem at 10 but rate better controlled. On PPI drip. Had upper endoscopy, result reviewed. No melena, no hematemesis, no hematochezia. Denies CP. 11/19: Patient did well over the night. No melena, no hematemesis, no hematochezia. Denies CP, dyspnea or palpitations. Objective Vital Signs Date Time Temp Pulse Resp B/P (MAP) Pulse Ox O2 Delivery O2 Flow Rate FiO2 11/19/17 15:55 98.0 80 20 115/55 (75) 96 11/19/17 07:00 Room Air 100 Intake and Output 11/19/17 11/19/17 11/20/17 08:00 16:00 00:00 Intake Total 1340 ml 60 ml Output Total 2000 ml Balance -660 ml 60 ml Result Diagram: 11/19/17 0440 11/19/17 0033 Objective Remarks General - middle age gentleman, obese, in no distress HEENT - pupils are equal, reactive, sclerae are anicteric, neck is supple, no JVD CV - irregular heart sounds, no murmurs Chest - clear b/l, decreased air entry at bases, no wheezes Abdomen - soft, not tender, obese, BS present Extremities - warm, no edema, + peripheral pulses Neuro - awake, alert and oriented, moves all extremities A/P Assessment and Plan Assessment: 1. Hypovolemic shock - resolved 2. UGI bleed s/p EGD. Found to have ulcer in the antrum with no active bleeding. Also significant gastritis and ? Jake - biopsy is pending 3. Coagulopathy - improved 4. Permanent atrial fibrillation - rate better controlled 5. Hyperkalemia - resolved 6. DM, Type 2, poorly controlled Plan: 1. Serial CBC 2. PPI daily. Stop drip 3.Off cardizem drip, on po 4. On diet 5. DVT prophylaxis with SCD's 6. Glycemic control Please call back with questions. Hospitalist service will take over. Thank you. Raul Melendez MD Nov 19, 2017 16:59
[2017-11-19 19:02] LABS: BICARBONATE 30.2 MEQ/L (21.0-32.0); CALCIUM 8.7 MG/DL (8.5-10.1); CREATININE 1.19 MG/DL (0.60-1.30)
[2017-11-19] MEDS: ATORVASTATIN 40 MG TAB PO SCH (20:58)
[2017-11-19 21:04] LABS: HEMATOCRIT 25.4 % (39.0-51.0); HEMOGLOBIN 8.7 GM/DL (13.0-17.0); MEAN CELL VOLUME 84.7 FL (80.0-100.0); MEAN CORPUSCULAR HEMOGLOBIN 29.1 PG (27.0-34.0); MEAN CORPUSCULAR HGB CONC 34.3 % (32.0-36.0); MEAN PLATELET VOLUME 8.7 FL (7.0-11.0); PLATELET COUNT 151 TH/MM3 (150-450); RED CELL DISTRIBUTION WIDTH 14.6 % (11.6-17.2)
[2017-11-19] MEDS: LATANOPROST 0.005% OPHT SOLN 2.5 ML BTL EACH EYE SCH (22:07)
[2017-11-20] VITALS (8 sets, daily range): BP systolic 103–114; BP diastolic 60–73; PULSE 66–88; RESP 16–21; TEMP 97.5–98.4; O2SAT 94–95
[2017-11-20] MEDS: CHLORHEXIDINE GLUCONATE 2 % 1 PACK (2 CLOTHS) TOP SCH (03:48)
[2017-11-20] MEDS: INSULIN ASPART SUPPLEMENTAL SCALE SQ SCH ×4 (05:15→22:49)
[2017-11-20 06:27] LABS: HEMATOCRIT 25.1 % (39.0-51.0); HEMOGLOBIN 8.7 GM/DL (13.0-17.0)
[2017-11-20] MEDS: HYDROCHLOROTHIAZIDE 12.5 MG CAP PO SCH (08:13)
[2017-11-20] MEDS: hydrALAZINE HCL 25 MG TAB PO SCH ×2 (08:13→22:28)
[2017-11-20] MEDS: LISINOPRIL 10 MG TAB PO SCH (08:13)
[2017-11-20] MEDS: DILTIAZEM-CD 120 MG CAP ER PO SCH (08:13)
[2017-11-20] MEDS: METOPROLOL TARTRATE 25 MG TAB PO SCH ×2 (08:14→22:29)
[2017-11-20] MEDS: CITALOPRAM HYDROBROMIDE 20 MG TAB PO SCH (08:14)
[2017-11-20] MEDS: LEVOTHYROXINE SODIUM 50 MCG TAB PO SCH (08:14)
[2017-11-20] MEDS: PANTOPRAZOLE SOD 40 MG DELAYED RELEASE TAB PO SCH (08:14)
--- NOTE | 2017-11-20 20:17 | PD.TRANSFR ---
Transfer Summary Admission Date Nov 17, 2017 at 10:41 Admitting Diagnosis gi bleed,anticoagulated,afib with rvr Diagnoses: (1) Hypovolemic shock Diagnosis: Principal (2) GI bleed Diagnosis: Principal (3) Coagulopathy Diagnosis: Principal (4) Acute hyperkalemia Diagnosis: Principal (5) Atrial fibrillation with RVR Diagnosis: Secondary Significant Findings Antral ulcer Transfer Summary/Subjective 11/17: 61 y/o man arrives to ED in hypovolemic shock and probable actively bleeding UGI ulcer/gastritis. Care is complicated by permanent atrial fibrillation and Xarelto use. Presently hyperkalemic and RVR, on cardizem gtt. Past history of gastric bleed. 11/18: Patient doing better. Normotensive, still requiring cardizem at 10 but rate better controlled. On PPI drip. Had upper endoscopy, result reviewed. No melena, no hematemesis, no hematochezia. Denies CP. 11/19: Patient did well over the night. No melena, no hematemesis, no hematochezia. Denies CP, dyspnea or palpitations. 11/20: No chest pain or SOB. Tolerating BP meds fine; control perhaps too good. Heart rate acceptable. Objective Vital Signs Date Time Temp Pulse Resp B/P (MAP) Pulse Ox O2 Delivery O2 Flow Rate FiO2 11/20/17 16:00 98.4 69 16 107/61 (76) 95 11/20/17 07:02 Room Air 11/19/17 18:05 100 Intake and Output 11/20/17 11/20/17 11/21/17 08:00 16:00 00:00 Intake Total 360 ml 720 ml Output Total 1200 ml 600 ml 1075 ml Balance -840 ml -600 ml -355 ml Result Diagram: 11/20/17 0515 11/19/17 0815 Objective Remarks General - middle age gentleman, obese, in no distress HEENT - pupils are equal, reactive, sclerae are anicteric, neck is supple, airway widely patent. CV - irregular heart sounds, no murmurs, no JVD. Chest - clear b/l, decreased air entry at bases, no wheezes Abdomen - soft, not tender, obese, BS present Extremities - warm, no edema, + peripheral pulses, well perfused Neuro - awake, alert and oriented, moves all extremities A/P Assessment and Plan Assessment: 1. Hypovolemic shock - resolved 2. UGI bleed s/p EGD. Found to have ulcer in the antrum with no active bleeding. Also significant gastritis and ? Scott's - biopsy is pending 3. Coagulopathy - improved 4. Permanent atrial fibrillation - rate better controlled 5. Hyperkalemia - resolved 6. DM, Type 2, poorly controlled Plan: 1. Serial CBC 2. PPI daily. Stop drip 3.Off cardizem drip, on po 4. On diet 5. DVT prophylaxis with SCD's 6. Glycemic control Transfer. Tacho Manley MD Nov 20, 2017 20:17
[2017-11-20] MEDS: ATORVASTATIN 40 MG TAB PO SCH (22:28)
[2017-11-20] MEDS: LATANOPROST 0.005% OPHT SOLN 2.5 ML BTL EACH EYE SCH (22:57)
[2017-11-21] VITALS: BP 108/64; PULSE 64; PULSE 66; RESP 16; TEMP 98.4; O2SAT 94
[2017-11-21] MEDS: CHLORHEXIDINE GLUCONATE 2 % 1 PACK (2 CLOTHS) TOP SCH (03:53)
[2017-11-21 04:00] VITALS: BP 117/59; PULSE 69; PULSE 73; RESP 16; TEMP 98.1; O2SAT 93
[2017-11-21 05:08] LABS: AUTOMATED NEUTROPHIL # 5.2 TH/MM3 (1.8-7.7); BASOPHIL % 0.5 % (0.0-2.0); EOSINOPHIL # 0.2 TH/MM3 (0-0.4); EOSINOPHIL % 2.3 % (0.0-4.0); HEMATOCRIT 26.5 % (39.0-51.0); HEMOGLOBIN 9.3 GM/DL (13.0-17.0); LYMPH % 29.4 % (9.0-44.0); LYMPHOCYTE # 2.6 TH/MM3 (1.0-4.8); MEAN CORPUSCULAR HEMOGLOBIN 29.9 PG (27.0-34.0); MEAN CORPUSCULAR HGB CONC 35.2 % (32.0-36.0); MEAN PLATELET VOLUME 8.9 FL (7.0-11.0); MONO % 8.3 % (0.0-8.0); MONOCYTE # 0.7 TH/MM3 (0-0.9); NEUT % 59.5 % (16.0-70.0); PLATELET COUNT 174 TH/MM3 (150-450); RED BLOOD COUNT 3.11 MIL/MM3 (4.50-5.90); RED CELL DISTRIBUTION WIDTH 14.1 % (11.6-17.2); WHITE BLOOD COUNT 8.7 TH/MM3 (4.0-11.0)
[2017-11-21] MEDS: INSULIN ASPART SUPPLEMENTAL SCALE SQ SCH ×2 (05:15→11:14)
--- NOTE | 2017-11-21 06:40 | HHI.DS ---
Discharge Summary Admission Date Nov 17, 2017 at 10:41 Discharge Date: Nov 21, 2017 Admitting Diagnosis gi bleed,anticoagulated,afib with rvr (1) Hypovolemic shock ICD Code: R57.1 - Hypovolemic shock Diagnosis: Principal (2) GI bleed ICD Code: K92.2 - Gastrointestinal hemorrhage, unspecified Diagnosis: Principal Status: Acute (3) Coagulopathy ICD Code: D68.9 - Coagulation defect, unspecified Diagnosis: Principal (4) Acute hyperkalemia ICD Code: E87.5 - Hyperkalemia Diagnosis: Principal Status: Acute (5) Atrial fibrillation with RVR ICD Code: I48.91 - Unspecified atrial fibrillation Diagnosis: Secondary Status: Acute Procedures EGD - Gastritis, ulcer antrum (not bleeding) Brief History 61 y/o man arrives to ED in hypovolemic shock and probable actively bleeding UGI ulcer/gastritis. Care is complicated by permanent atrial fibrillation and Xarelto use. Presently hyperkalemic and RVR, on cardizem gtt. Past history of gastric bleed. CBC/BMP: 11/21/17 0425 11/19/17 1756 Significant Findings Laboratory Tests Test 11/18/17 13:19 11/18/17 16:19 11/18/17 19:09 11/19/17 00:33 Hemoglobin 9.7 GM/DL (13.0-17.0) 9.1 GM/DL (13.0-17.0) 8.5 GM/DL (13.0-17.0) Hematocrit 27.9 % (39.0-51.0) 26.3 % (39.0-51.0) 24.6 % (39.0-51.0) Blood Urea Nitrogen 44 MG/DL (7-18) 32 MG/DL (7-18) Random Glucose 119 MG/DL (74-106) 118 MG/DL (74-106) Calcium Level 8.0 MG/DL (8.5-10.1) 8.1 MG/DL (8.5-10.1) Sodium Level 149 MEQ/L (136-145) 146 MEQ/L (136-145) Chloride Level 117 MEQ/L (98-107) 113 MEQ/L (98-107) Estimat Glomerular Filtration Rate 63 ML/MIN (>89) 59 ML/MIN (>89) Anion Gap 4 MEQ/L (5-15) Test 11/19/17 04:40 11/19/17 17:56 11/19/17 20:13 11/20/17 05:15 Hemoglobin 7.8 GM/DL (13.0-17.0) 8.7 GM/DL (13.0-17.0) 8.7 GM/DL (13.0-17.0) Hematocrit 22.9 % (39.0-51.0) 25.4 % (39.0-51.0) 25.1 % (39.0-51.0) Blood Urea Nitrogen 20 MG/DL (7-18) Random Glucose 145 MG/DL (74-106) Estimat Glomerular Filtration Rate 62 ML/MIN (>89) Red Blood Count 3.00 MIL/MM3 (4.50-5.90) Test 11/21/17 04:25 Red Blood Count 3.11 MIL/MM3 (4.50-5.90) Hemoglobin 9.3 GM/DL (13.0-17.0) Hematocrit 26.5 % (39.0-51.0) Monocytes (%) (Auto) 8.3 % (0.0-8.0) PE at Discharge Improved.Stable hemodynamics. Transfer Summary 11/17: 61 y/o man arrives to ED in hypovolemic shock and probable actively bleeding UGI ulcer/gastritis. Care is complicated by permanent atrial fibrillation and Xarelto use. Presently hyperkalemic and RVR, on cardizem gtt. Past history of gastric bleed. 11/18: Patient doing better. Normotensive, still requiring cardizem at 10 but rate better controlled. On PPI drip. Had upper endoscopy, result reviewed. No melena, no hematemesis, no hematochezia. Denies CP. 11/19: Patient did well over the night. No melena, no hematemesis, no hematochezia. Denies CP, dyspnea or palpitations. 11/20: No chest pain or SOB. Tolerating BP meds fine; control perhaps too good. Heart rate acceptable. Hospital Course 11/17: 61 y/o man arrives to ED in hypovolemic shock and probable actively bleeding UGI ulcer/gastritis. Care is complicated by permanent atrial fibrillation and Xarelto use. Presently hyperkalemic and RVR, on cardizem gtt. Past history of gastric bleed. 11/18: Patient doing better. Normotensive, still requiring cardizem at 10 but rate better controlled. On PPI drip. Had upper endoscopy, result reviewed. No melena, no hematemesis, no hematochezia. Denies CP. Pt Condition on Discharge: Good Discharge Disposition: Discharge Home Tacho Manley MD Nov 21, 2017 06:40
[2017-11-21 08:00] VITALS: BP 101/67; PULSE 72; RESP 13; TEMP 97.5; O2SAT 95
[2017-11-21] MEDS ORDERED: PANT40TA3 PO (08:44)
[2017-11-21] MEDS: hydrALAZINE HCL 25 MG TAB PO SCH (09:00)
[2017-11-21] MEDS ORDERED: ENOXAPARIN SODIUM 40 MG/0.4 ML SYRINGE SQ SCH (09:00)
[2017-11-21] MEDS: LISINOPRIL 10 MG TAB PO SCH (09:00)
[2017-11-21] MEDS: DILTIAZEM-CD 120 MG CAP ER PO SCH (09:03)
[2017-11-21] MEDS: LEVOTHYROXINE SODIUM 50 MCG TAB PO SCH (09:04)
[2017-11-21] MEDS: HYDROCHLOROTHIAZIDE 12.5 MG CAP PO SCH (09:04)
[2017-11-21] MEDS: PANTOPRAZOLE SOD 40 MG DELAYED RELEASE TAB PO SCH (09:04)
[2017-11-21] MEDS: CITALOPRAM HYDROBROMIDE 20 MG TAB PO SCH (09:04)
[2017-11-21] MEDS: METOPROLOL TARTRATE 25 MG TAB PO SCH (09:05)
== END 2017-11-21 11:30 | disposition home or self-care (01) | DRG 377 ==
LOC: NEPC 08:07 → NEDA 10:41 → N03A 12:32 → N03B 11-19 13:06
PROVIDERS: ADMIT Internal Medicine; ATTEND Internal Medicine
PROC: 30233N1 Transfusion of Nonautologous Red Blood Cells into Peripheral Vein, Percutaneous Approach (ICD-10-PCS; 2017-11-17)
PROC: 0DB68ZX Excision of Stomach, Via Natural or Artificial Opening Endoscopic, Diagnostic (ICD-10-PCS; 2017-11-18)
PROC: 0DB38ZX Excision of Lower Esophagus, Via Natural or Artificial Opening Endoscopic, Diagnostic (ICD-10-PCS; principal; 2017-11-18 09:30)
DX: K25.4 Chronic or unspecified gastric ulcer with hemorrhage (principal); R57.1 Hypovolemic shock; D68.32 Hemorrhagic disorder due to extrinsic circulating anticoagulants; K29.51 Unspecified chronic gastritis with bleeding; E87.5 Hyperkalemia; E11.65 Type 2 diabetes mellitus with hyperglycemia; K21.9 Gastro-esophageal reflux disease without esophagitis; T45.515A Adverse effect of anticoagulants, initial encounter; I10 Essential (primary) hypertension; I48.2 Chronic atrial fibrillation; E66.01 Morbid (severe) obesity due to excess calories; D50.0 Iron deficiency anemia secondary to blood loss (chronic); G47.30 Sleep apnea, unspecified; F32.9 Major depressive disorder, single episode, unspecified; F41.9 Anxiety disorder, unspecified; Z79.01 Long term (current) use of anticoagulants; Z79.84 Long term (current) use of oral hypoglycemic drugs; Z87.891 Personal history of nicotine dependence
CPT/HCPCS: 36430; 80048; 82948; 84155; 85014; 85018; 85025; 85027; 85610; 85730; 86850; 86900; 86901; 86920; 87641; 88305; 88312; 93005; 96361; 96374; 96375; 99292; C9113; C9132; J0610; J1650; J1815; J2405; J7030; J7120; P9016